=== PATIENT | male | born 1995 ===

== ENCOUNTER 2017-06-17 21:20 | Emergency (ER) | payer MEDICAID ==
[2017-06-17] MEDS ORDERED: Sodium Chloride 0.9% 1,000 ML IV ONE (21:43)
--- NOTE | 2017-06-17 21:52 | C.PDOC ---
History Of Present Illness 21 year old male who presents to the ER with a complaint of a fever for the past 5 days. Patient saw his PMD yesterday was found to have a temperature of 104. Patient notes feeling mildly weak with some diarrhea. Denies cough, urinary symptoms, sore throat, and ear pain. Time Seen by Provider: 06/17/17 21:31 Chief Complaint (Nursing): Fever History Per: Patient History/Exam Limitations: no limitations Onset/Duration Of Symptoms: Days Current Symptoms Are (Timing): Still Present Location Of Pain: None Sick Contacts (Context): None Associated Symptoms: Fever, Diarrhea. denies: Sore Throat, Cough, Nausea, Vomiting Ear Symptoms: Bilateral: None Recent travel outside of the [place]: No Past Medical History Reviewed: Historical Data, Nursing Documentation, Vital Signs Vital Signs: Last Vital Signs Temp 98.3 F 06/17/17 22:42 Pulse 77 06/17/17 22:42 Resp 20 06/17/17 22:42 BP 111/82 06/17/17 22:42 Pulse Ox 99 06/17/17 22:42 - Medical History PMH: No Chronic Diseases Surgical History: No Surg Hx Family History: States: Unknown Family Hx - Social History Hx Alcohol Use: No Hx Substance Use: No - Immunization History Hx Tetanus Toxoid Vaccination: No Hx Influenza Vaccination: No Hx Pneumococcal Vaccination: No Review Of Systems Constitutional: Positive for: Fever, Weakness ENT: Negative for: Ear Pain, Throat Pain Gastrointestinal: Positive for: Diarrhea. Negative for: Nausea, Vomiting, Abdominal Pain Genitourinary: Negative for: Dysuria, Hematuria Physical Exam - Physical Exam Appears: Non-toxic, No Acute Distress Skin: Normal Color, Warm, Dry Head: Atraumatic, Normacephalic Oral Mucosa: Moist Chest: Symmetrical Cardiovascular: Rhythm Regular Respiratory: Normal Breath Sounds, No Rales, No Rhonchi, No Wheezing Gastrointestinal/Abdominal: Soft, No Tenderness Neurological/Psych: Oriented x3, Normal Speech, Normal Cognition ED Course And Treatment - Laboratory Results Result Diagrams: 06/17/17 21:52 06/17/17 21:52 O2 Sat by Pulse Oximetry: 98 (Room air) Pulse Ox Interpretation: Normal Medical Decision Making Medical Decision Making: viral sydnrome, vs pna, vs uti - labs imaging pending Plan: * Blood work * CXR * Urinalysis * IV fluids * 1045: labs unremarkable. cxr neg as read by me. ua neg. pt on phone in [place] for dc Disposition - Disposition Referrals: [facility] [Outside] [facility] [Outside] Disposition: HOME/ ROUTINE Disposition Time: 08:00 Condition: STABLE Additional Instructions: please follow up with your doctor. return to er with worsening symptoms or concerns. Instructions: Fever in Adults (ED) Forms: [employer] (Bermudian) - Clinical Impression Clinical Impression: Fever - Scribe Statement The provider has reviewed the documentation as recorded by the Scribgaetano Estes All medical record entries made by the Autumnibe were at my direction and personally dictated by me. I have reviewed the chart and agree that the record accurately reflects my personal performance of the history, physical exam, medical decision making, and the department course for this patient. I have also personally directed, reviewed, and agree with the discharge instructions and disposition.
[2017-06-17 21:55] LABS: BASO % 0.5 % (0.0-2.0); LYMPH # 1.1 K/uL (1.0-4.3); LYMPH % 35.1 % (20.0-40.0); MEAN CELL VOLUME 83.8 fL (80.0-94.0); MEAN CORPUSCULAR HEMOGLOBIN 28.9 pg (27.0-31.0); MEAN CORPUSCULAR HGB CONC 34.5 g/dL (33.0-37.0); MEAN PLATELET VOLUME 7.4 fL (7.2-11.7); MONO # 0.3 K/uL (0.0-0.8); MONO % 9.9 % (0.0-10.0); NRBC % 0.1 % (0.0-2.0); RED CELL DISTRIBUTION WIDTH 13.5 % (11.5-14.5); WHITE BLOOD COUNT 3.2 K/uL (4.8-10.8)
[2017-06-17 21:59] LABS: RBC URINE < 1 /hpf (0-3); URINE BACTERIA RARE (<OCC); URINE BILIRUBIN NEGATIVE (NEGATIVE); URINE BLOOD NEGATIVE (NEGATIVE); URINE COLOR Yellow (YELLOW); URINE GLUCOSE (UA) NORMAL (Normal); URINE KETONE NEGATIVE (NEGATIVE); URINE LEUKOCYTE ESTERASE NEG Leu/uL (Negative); URINE PROTEIN NEGATIVE (NEGATIVE); URINE UROBILINOGEN NORMAL mg/dL (0.2-1.0); WBC URINE 3 /hpf (0-5)
[2017-06-17] MEDS ORDERED: Sodium Chloride 0.9% 1,000 ML ONE (22:00)
[2017-06-17 22:13] LABS: ALKALINE PHOSPHATASE 80 U/L (38-126); ALT/SGPT 43 U/L (21-72); AST/SGOT 53 U/L (17-59); BILIRUBIN,TOTAL 1.2 mg/dL (0.2-1.3); BLOOD UREA NITROGEN 12 mg/dL (9-20); CALCIUM 8.9 mg/dl (8.6-10.4); CARBON DIOXIDE 27 mmol/L (22-30); CHLORIDE 97 mmol/L (98-107); GFR AFRICAN-AMERICAN > 60; GLUCOSE,RANDOM 76 mg/dL (75-110); POTASSIUM 4.8 mmol/L (3.6-5.2); SODIUM 136 mmol/L (132-148); TOTAL PROTEIN 7.4 g/dL (6.3-8.3)
[2017-06-17 22:44] VITALS: BP 111/82; PULSE 77; RESP 20; TEMP 98.3
[2017-06-17 22:45] VITALS: O2SAT 98
--- NOTE | 2017-06-18 10:49 | RAD ---
HISTORY: Shortness of breath COMPARISON: No prior. TECHNIQUE: Chest PA and lateral FINDINGS: LUNGS: Mild venous congestion. Few scattered nodular opacities in the upper lung zones may represent vessels on end. PLEURA: No significant pleural effusion identified. No pneumothorax apparent. CARDIOVASCULAR: Normal. OSSEOUS STRUCTURES: No significant abnormalities. VISUALIZED UPPER ABDOMEN: Normal. OTHER FINDINGS: None. IMPRESSION: Mild venous congestion. Few scattered nodular opacities in the upper lung zones may represent vessels on end.
== END 2017-06-17 22:45 | disposition home or self-care (01) ==
LOC: C.ER 21:20
DX: R50.9 Fever, unspecified (principal)
CPT/HCPCS: 71020; 80053; 81001; 83690; 85025; 96360; 99285; J7040